=== PATIENT | female | born 1995 | race Caucasian/White ===

== ENCOUNTER 2017-07-01 13:23 | Emergency (ER) | payer OTHER ==
[~2017-07-01] VITALS: Ht 167.6 cm; Wt 51.8 kg
[~2017-07-01 13:23] MED LIST: ACET-1256 PO
[2017-07-01 13:27] VITALS: Ht 167.6 cm; Wt 51.8 kg
[2017-07-01] MEDS ORDERED: SODIUM CHLORIDE 0.9% 1000ML 1,000 ML IV STA (13:41)
[2017-07-01] MEDS ORDERED: ALBUT/IPRATROP 3MG/0.5MG NEB 3 ML VIAL INH STA (13:41)
--- NOTE | 2017-07-01 13:47 | EMERGENCY ROOM VISIT NOTE ---
History First contact with patient: 13:28 Chief Complaint: SORETHROAT Stated Complaint: CAN'T SWALLOW, DIFF. BREATING, BLOOD WHEN COUGHING History of Present Illness The patient is a 22 year old female who presents to the Emergency Room with complaints of cough 4 days. The patient reports that she has had worsening cough over the past 4 days. She was seen at [facility] yesterday and diagnosed with acute bronchitis. She states that since then, she has been coughing up a small amount of blood and has been unable to swallow due to throat irritation. She has had coughing fits and does have some difficulty breathing associated with these. She reports a low-grade fever, chills, muscle aches, nausea and decreased appetite. She does report she drove to [place] 2 weeks ago but denies any other long travel. She is not a smoker. She reports her mother and sister have factor V Leiden disorder, but the patient tested negative for this. She denies any history of asthma or other pulmonary issues. Her vaccinations are up-to-date. Review of Systems A complete 10 point review of systems was reviewed with the patient with pertinent positives and negatives as per history of present illness. All else were negative. Past Medical/Surgical History Medical Problems: (1) No significant past medical history Surgical Problems: (1) No history of previous surgery Family History FH: cancer FH: diabetes mellitus Social History Smoking Status: Never Smoker Alcohol Use: occasionally Housing Status: lives with roommate Occupation Status: [employer] student Current/Historical Medications Scheduled Azithromycin (Zithromax), 250 MG PO DIRECTED Scheduled PRN Benzonatate (Tessalon Perles), 100 MG PO TID PRN for Cough Hydrocodone W/ Homatropine (Hycodan 5/1.5MG 5 Ml), 5-10 ML PO Q4H PRN for Cough Physical Exam Vital Signs Date Time Temp Pulse Resp B/P (MAP) Pulse Ox O2 Delivery O2 Flow Rate FiO2 07/01/17 15:42 36.8 107 18 115/71 98 07/01/17 14:57 105 20 127/75 98 Room Air 07/01/17 13:53 99 Room Air 07/01/17 13:27 36.9 119 18 124/88 97 Room Air 07/01/17 13:26 Room Air Physical Exam VITALS: Vitals are noted on the nurse's note and reviewed by myself. Vital signs stable. GENERAL: This is a 22-year-old female, in no acute distress, nondiaphoretic, well-developed well-nourished. SKIN: The skin was without rashes. EARS: External auditory canals clear, tympanic membranes pearly oliva without erythema or effusion bilaterally. EYES: Pupils equal round and reactive to light and accommodation. Conjunctivae without injection, sclerae without icterus. NOSE: Patent, turbinates without inflammation or discharge. MOUTH: Mucous membranes moist. The oropharynx is mildly erythematous. No swelling of the tonsils or exudate present. NECK: Supple without nuchal rigidity. No lymphadenopathy. HEART: Tachycardic, regular rhythm without murmurs gallops or rubs. LUNGS: Clear to auscultation bilaterally without wheezes, rales or rhonchi. No retractions or accessory muscle use. ABDOMEN: Positive bowel sounds x 4. Soft, nontender, without masses or organomegaly. NEURO: Patient was alert and oriented to person place and time. Medical Decision & Procedures ER Provider Diagnostic Interpretation: CHEST 2 VIEWS ROUTINE CLINICAL HISTORY: cough, sob COMPARISON STUDY: No previous studies for comparison. FINDINGS: The cardiac and mediastinal contours are normal. There is no evidence of focal pulmonary consolidation. There is no evidence of failure. No pleural effusions are visualized.[ IMPRESSION: No active disease in the chest. Laboratory Results 07/01/17 13:53 Red Blood Count 4.96, Mean Corpuscular Volume 89.3, Mean Corpuscular Hemoglobin 31.0, Mean Corpuscular Hemoglobin Concent 34.8, Mean Platelet Volume 9.5, Neutrophils (%) (Auto) 79.8, Lymphocytes (%) (Auto) 10.0, Monocytes (%) (Auto) 9.7, Eosinophils (%) (Auto) 0.1, Basophils (%) (Auto) 0.2, Neutrophils # (Auto) 7.86, Lymphocytes # (Auto) 0.98, Monocytes # (Auto) 0.95, Eosinophils # (Auto) 0.01, Basophils # (Auto) 0.02 07/01/17 13:53 Test 07/01/17 13:45 07/01/17 13:53 Influenza Type A Antigen Neg for Influ A (NEG) Influenza Type B Antigen Neg for Influ B (NEG) White Blood Count 9.84 K/uL (4.8-10.8) Red Blood Count 4.96 M/uL (4.2-5.4) Hemoglobin 15.4 g/dL (12.0-16.0) Hematocrit 44.3 % (37-47) Mean Corpuscular Volume 89.3 fL (80-100) Mean Corpuscular Hemoglobin 31.0 pg (25-34) Mean Corpuscular Hemoglobin Concent 34.8 g/dl (32-36) Platelet Count 208 K/uL (130-400) Mean Platelet Volume 9.5 fL (7.4-10.4) Neutrophils (%) (Auto) 79.8 % Lymphocytes (%) (Auto) 10.0 % Monocytes (%) (Auto) 9.7 % Eosinophils (%) (Auto) 0.1 % Basophils (%) (Auto) 0.2 % Neutrophils # (Auto) 7.86 K/uL (1.4-6.5) Lymphocytes # (Auto) 0.98 K/uL (1.2-3.4) Monocytes # (Auto) 0.95 K/uL (0.11-0.59) Eosinophils # (Auto) 0.01 K/uL (0-0.5) Basophils # (Auto) 0.02 K/uL (0-0.2) RDW Standard Deviation 42.5 fL (36.4-46.3) RDW Coefficient of Variation 13.0 % (11.5-14.5) Immature Granulocyte % (Auto) 0.2 % Immature Granulocyte # (Auto) 0.02 K/uL (0.00-0.02) D-Dimer 420 ug/L FEU (0-500) Anion Gap 9.0 mmol/L (3-11) Est Creatinine Clear Calc Drug Dose 80.2 ml/min Estimated GFR () 105.2 Estimated GFR (Non- 90.8 BUN/Creatinine Ratio 9.2 (10-20) Calcium Level 9.2 mg/dl (8.5-10.1) Medications Administered Medications (Trade) Dose Ordered Sig/Jorge Route Start Time Stop Time Status Last Admin Dose Admin Sodium Chloride 1,000 ml @ 999 mls/hr Q1H1M STAT IV 07/01/17 13:41 07/01/17 14:49 DC 07/01/17 13:52 999 MLS/HR Albuterol/ Ipratropium (Duoneb) 3 ml NOW STAT INH 07/01/17 13:41 07/01/17 13:43 DC 07/01/17 13:52 3 ML Albuterol (Ventolin Hfa Inhaler) 2 puffs NOW ONCE INH 07/01/17 15:15 07/01/17 15:16 DC 07/01/17 15:42 2 PUFFS ED Course The patient was evaluated as above. Labs were drawn and IV access was obtained. Patient was medicated with a DuoNeb treatment and a 1 L saline bolus. Chest x-ray was performed and read by radiology as above. Patient was reevaluated and findings were discussed with the patient. Discharge instructions were reviewed with the patient. The patient verbalized understanding of my assessment and treatment plan and was discharged home in good condition. Medical Decision Differential diagnosis includes acute bronchitis, pneumonia, influenza, pulmonary embolism, malignancy/mass, among others. The patient is a 22-year-old female who presents today complaining of cough and flulike symptoms. Labs revealed no leukocytosis, anemia or concerning electrolyte abnormalities. D-dimer was not elevated, and as patient is not significantly high risk I do not feel that further workup for PE is oriented. Chest x-ray did not show pneumonia. Patient is already taking Zithromax which was prescribed by [employer]. She was encouraged to continue this. She was additionally given a Ventolin inhaler and hydrocodone cough syrup for further symptomatic relief. She was encouraged to increase fluid intake and follow-up with [facility] services as needed. Based on the patient's presentation and work up, I feel the patient is stable for outpatient treatment. The patient was educated to return to the emergency department for any worsening of their current condition or new/concerning symptoms. She will follow up with [facility]. [facility] Monitoring Program Search Results: patient reviewed within database, no issues identified Medication Reconcilliation Current Medication List: was personally reviewed by me Blood Pressure Screening Patient's blood pressure: Normal blood pressure Impression Primary Impression: Upper respiratory infection Departure Information Dispostion Home / Self-Care Condition GOOD Prescriptions Hydrocodone W/ Homatropine (HYCODAN 5/1.5MG 5 ML) 1 Syp Syp 5-10 ML PO Q4H Y for Cough, #120 ML Prov: Lucy Wilson ., LILLIE 07/01/17 Referrals No Doctor, Assigned (PCP) Patient Instructions My [facility] Additional Instructions Take the Hycodan cough syrup as directed as needed for cough. This medication may make you drowsy. This medication impairs her ability to drive. It is illegal to drive while taking this medication. Use the Ventolin inhaler every 4-6 hours as needed for cough. For pain control, you can use the following [id number] medicines (if >12 yo): - Regular strength (325mg/tab) Tylenol (acetaminophen) 2 tabs every 4-6 hours as needed. Do not exceed 12 tablets in a 24 hour period. Avoid taking more than 4 grams (4000 mg) of Tylenol per day. This includes any other sources of acetaminophen you may take on a regular basis. - Regular strength (200 mg/tab) Advil (ibuprofen) 1-2 tabs every 4-6 hours as needed. Do not exceed a dose of 3200 mg per day. Rest and drink plenty of fluids. Follow-up with [facility] services as needed. Return here with any worsening or new/concerning symptoms. Problem Qualifiers Primary Impression: Upper respiratory infection URI type: unspecified URI Qualified Codes: J06.9 - Acute upper respiratory infection, unspecified
[2017-07-01 13:53] VITALS: O2SAT 99
[2017-07-01 14:06] LABS: BASO % 0.2 %; BASO ABS # 0.02 K/uL (0-0.2); COMPLETE YES; EOS % 0.1 %; HEMATOCRIT 44.3 % (37-47); IG% 0.2 %; LYMPH ABS # 0.98 K/uL (1.2-3.4); MEAN CELL VOLUME 89.3 fL (80-100); MEAN CORPUSCULAR HGB CONC 34.8 g/dl (32-36); MEAN PLATELET VOLUME 9.5 fL (7.4-10.4); MONO % 9.7 %; NEUT % 79.8 %; PLATELET COUNT 208 K/uL (130-400); RED BLOOD COUNT 4.96 M/uL (4.2-5.4); WHITE BLOOD COUNT 9.84 K/uL (4.8-10.8)
[2017-07-01] MEDS ORDERED: AZIT250T PO (14:16)
[2017-07-01] MEDS ORDERED: BENZ100C84 PO (14:16)
[2017-07-01 14:23] LABS: BUN/CREATININE RATIO 9.2 (10-20); CALCIUM 9.2 mg/dl (8.5-10.1); CREATININE 0.9 mg/dl (0.60-1.20); POTASSIUM 3.8 mmol/L (3.5-5.1)
--- NOTE | 2017-07-01 14:39 | DIAGNOSTIC IMAGING REPORT ---
CHEST 2 VIEWS ROUTINE CLINICAL HISTORY: cough, sob COMPARISON STUDY: No previous studies for comparison. FINDINGS: The cardiac and mediastinal contours are normal. There is no evidence of focal pulmonary consolidation. There is no evidence of failure. No pleural effusions are visualized.[ IMPRESSION: No active disease in the chest. Electronically signed by: Dilan Godoy M.D. 07/01/2017 2:37 PM Dictated Date/Time: 07/01/2017 2:37 PM
[2017-07-01] MEDS ORDERED: ALBUTEROL HFA 8 GM INHALER INH ONE (15:15)
[2017-07-01] MEDS ORDERED: HYDR5SYP11 PO (15:17)
[2017-07-01 15:42] VITALS: BP 115/71; PULSE 107; TEMP 36.8; O2SAT 98
== END 2017-07-01 15:45 | disposition home or self-care (01) ==
LOC: C.EDB 13:25
DX: J06.9 Acute upper respiratory infection, unspecified (principal)

== ENCOUNTER 2019-07-17 21:47 | Inpatient (IN) ==
[2019-07-17] MEDS ORDERED: SODIUM CHLORIDE 0.9% 1000ML 1,000 ML IV SCH (22:15)
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
[2019-07-17 22:29] LABS: Appearance Urine Clear (Clear); Bilirubin Urine Negative (Negative); Blood Urine Negative (Negative); Color Urine Yellow; Glucose Urine UA Negative (Negative); Ketones Urine Negative (Negative); Leukocyte Esterase Urine Negative (Negative); Nitrite Urine Negative (Negative); Protein Urine Negative (Negative); Specific Gravity Urine 1.012 (1.000-1.030); Urobilinogen Urine Negative (Negative)
[2019-07-17 22:35] LABS: Basophils # (auto) 0.02 K/uL (0-0.2); Basophils % (auto) 0.3 %; Eosinophils # (auto) 0.02 K/uL (0-0.5); Eosinophils % (auto) 0.3 %; Hemoglobin 14.3 g/dL (12.0-16.0); Immature Granulocytes # (auto) 0.01 K/uL (0.00-0.02); Immature Granulocytes % (auto) 0.2 %; Lymphocytes # (auto) 2.13 K/uL (1.2-3.4); Lymphocytes % (auto) 32.1 %; Mean Corpuscular Hgb Conc 33.3 g/dL (32-36); Mean Corpuscular Volume 90.1 fL (80-100); Mean Platelet Volume 9.4 fL (7.4-10.4); Monocytes # (auto) 0.38 K/uL (0.11-0.59); Monocytes % (auto) 5.7 %; Neutrophils # (auto) 4.07 K/uL (1.4-6.5); Neutrophils % (auto) 61.4 %; Platelet Count 339 K/uL (130-400); RDW Coefficient of Variation 13.6 % (11.5-14.5); Red Blood Count 4.77 M/uL (4.2-5.4); White Blood Count 6.63 K/uL (4.8-10.8)
[2019-07-17 22:38] LABS: Prothrombin Time 9.8 Seconds (9.0-12.0)
[2019-07-17 22:46] LABS: Albumin Level 3.7 gm/dl (3.4-5.0); Calcium 8.9 mg/dl (8.5-10.1); Creatinine Clr Calc Pharmacy 92.7 ml/min; Est GFR (African American) 140.5; Est GFR (Non-African American) 121.3; Magnesium 1.9 mg/dl (1.8-2.4); Potassium 3.7 mmol/L (3.5-5.1)
[2019-07-17 22:48] LABS: Pregnancy Test, Serum Negative (Negative)
[2019-07-17 22:49] LABS: Albumin Globulin Ratio 0.9 (0.9-2); Bilirubin,Total 0.2 mg/dl (0.2-1); Globulin 4.1 gm/dl (2.5-4.0); Total Protein 7.8 gm/dl (6.4-8.2)
[2019-07-17 22:51] LABS: Amphetamines+Metham, Urine Neg (Neg); Barbiturates, Urine Neg (Neg); Benzodiazepine, Urine Neg (Neg); Cocaine, Urine Neg (Neg); MDMA (Ecstacy), Urine Neg (Neg); Methadone, Urine Neg (Neg); Opiate, Urine Neg (Neg); Phencyclidine, Urine Neg (Neg)
[2019-07-17 23:09] LABS: Acetaminophen < 2 ug/ml (10-30); Salicylate < 1.7 mg/dl (2.8-20)
[2019-07-18] MEDS ORDERED: ONDANSETRON INJ 2 MG/ML 2 ML VIAL IV STA (04:11)
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
[2019-07-18] MEDS ORDERED: MAGNESIUM HYDROXIDE SUSP 30 ML UDC PO PRN (05:32)
[2019-07-18] MEDS ORDERED: ALUMINUM/MAGNESIUM SUSP 30 ML UDC PO PRN (05:32)
[2019-07-18] MEDS ORDERED: BISMUTH SUBSALICYLATE PER ML OMNICELL CHARGE PO PRN (05:32)
[2019-07-18] MEDS ORDERED: ACETAMINOPHEN 325 MG TAB PO PRN (05:32)
[2019-07-18] MEDS ORDERED: SODIUM CHLORIDE 0.65% NA SOLN 45 ML (OCEAN) PRN (05:32)
--- NOTE | 2019-07-18 18:22 | History & Physical ---
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 Pt is seeking outpt therapy referral and is not seeking psychotropic medicaiton a t this time but did express willingness to consider buspar as an option. Pt denied any past SI and wonders if the emotional distress and the alcohol usage that is not somethin she tends to use brought out her sudden impuslive self ahrming behavior and denied any further or previous SI. She is seeeking discharge shortly from the hospital as preferring to be home but also seeming to receptive to treatment. She has not signed 72hour notice and apepars to be working with staff and engaging fully so far. (1) Anxiety: Inventory Assets Strengths: insightful, seeking therapy, Needs: therapy referral, addresing interpersonal relationship concerns with a female friend and with new intimate relationship Risk Factors Assessment Male: No : Yes Do You Have Access To A Gun?: No Health Problems: No Mental Health Diagnoses: Yes Substance Use Disorders: No Previous Psychiatric Hospitalization: No Hopelessness: No Smoker: No Protective Factors Assessment : No Responsible for Young Children: No Employed: No Supportive Family: Yes Psychiatric History Identifying Data KATHLEEN BAUTISTA is a 24-year-old F who currently lives in [place] has a remote history of Anorexia Nervosa currently resolved and present with symptoms consistent with EDDI , and was admitted on 07/18/19 04:37 on a 201 voluntary commitment for having OD of Macrobid in context of emotional distress and alcohol intoxation Chief Complaint "when can I go Home". History of Present Illness Kathleen is a 24-year-old female this is her first psychiatric admission and was admitted to [facility] 07/18 due to a sudden impulsive suicidal gesture taking overdose of Macrobid pills on night of 07/17 in the context of quite significant alcohol drinking that evening with her first aiming for the alcohol usage to help relax her and have a nice night out with likely eating of some self-medicating. However her emotional distress increased and she felt like she was more angry and upset and anxious and overwhelmed she did. She does not fully recall her thought process and various details leading up to her overdose attempt . She is quite engaging in the interview and quite insightful. She shares about her stressors with a focus more on how she is feeling tense over applying for grad school in [facility] for counseling. She is here on a student visa and would highly like to be able to live in [facility] upon graduation in December but will need to have a training program to be affiliated with to be able to extend her visa. Her goal is to be in to live in [facility]. Her backup is to live in [place] and sort out what she would be doing while there only if does not end up in [facility]. Her mother is currently in [place] and patient plans to visit her there during this upcoming giving break that is now less than a week away. Her father is in [facility]. She shared that her other stressor is having a lot on her plate including a significant position in dealing with [employer] that has her on 2 committiees. She is realizing how much she tends to be a perfectionist and to keep herself quite busy and is starting to consider making some shifts in this as wiling to view it as not working for her as well as she would otherwise think. She hasd recent intperersonal tnesion with a main female friend who she has celared the air with about 2 weks ago with her also deciding to adjsut her bdouanries and relationship with. It appears that trigger for last night's drinking and emotional distress was some emotional attention tied to that tyrone that she recently started seeing. It appears that this relationship was kept quiet from her peer group due to how they are all interconnected. She did not divulge the source of this emotional tension but that she is coming to the decision that she wants to end the relationship due to the fact that she is not comfortable with how emotionally distressed this relationship caused her to be this past night. She alldued to a prior relationship that was quite unhealthly for her but did not disclose further about it of these relationships. She enodrsed impaired motivation recently and soemtiems short spurts of depessed mood but denied other depressive symptoms. She enodrsed EDDI symptoms though. She enodrsed having 1-2 panic attacks and pehraps a panic attack last night. She reproted that she is not one dto drink much at all and last nigth was quite different for her in terms of her drinking. She denied any cananis usage or other substnace usage and or misue of meds, deneid any past h/o SIB or other para-suicidal ideation or behaviors prior to above OD. She denied HI. she denied psychotic features or h/o hypomanic symptoms or OCD. she denied any ED symptoms besides some poor body image that can worsen at times of stress. Past Psychiatric History Previous Psych History: Anoxeria nervosa - purging time adolscence treatment otbained and improved/resovled at age 18 with outpt therapy aptps. Current Psychiatric Diagnosis: EDDI Previous Psych Admissions: this admission first admission Do You Have Access To A Gun?: No History of Previous Suicide Attempt: Yes (addmission OD of several macrobid pills and ) Describe Attempts in the Past: age 16 - cut self Past Medication Trials: none Past Head Trauma/Neuro History History of Concussion/Seizure: No Allergies Allergy/AdvReac Type Severity Reaction Status Date / Time No Known Allergies Allergy Unverified 05/02/19 00:44 Home Medications Home Medications Medication Instructions Recorded Confirmed Type June FE .01/28 (28) 1 tab DAILY 07/18/19 07/18/19 History Family History Family History of: None Alcohol History Hx of Alcohol Use Over the Past 12 Months: Yes (occassional/social - "very rarely") AUDIT Total Score: 3 Smoking Use Have You Smoked or Used Tobacco Products in the Last 30 Days: No Smoking Status: Never smoker Substance History Hx of Prescription Med Misuse Over the Past 12 Months: No Hx of Over the Counter Med Misuse Over the Past 12 Months: No Hx of Inhalent Misuse Over the Past 12 Months: No Hx of Organic Substance Use Over the Past 12 Months: No Hx of Illegal Substances/Street Drug Use Over Past 12 Months: No Problems as a Result of Past Substance Use: None Identified Personal History Living Arrangements: Apartment Highest Grade Completed: High School Graduate Highest Grade Completed Comment: [employer] Senior - Art History and setting up to chato ly to grad school for counseling for next school year Marital Status: Single Number Of Children: 0 Beliefs That Will Affect Care: None Current Legal Problems: No Patient History Medical History Contusion of lumbar nerve root (Acute) Depression Sacral contusion (Acute) Upper respiratory infection (Acute) Social History Preferred Language: Macedonian Communication Ability: Effective Mess Attendant Required: No Beliefs That Will Affect Care: None current occupational status: student Feels Safe at Home: Yes Smoking Status: Never smoker Hx Alcohol Use: Yes Hx Substance Use: No Review of Systems Review of Systems: All systems reviewed & are unremarkable except as noted in HPI & below physical exam completed by Dr. Jernigan in the ER was reviewed and considered appropriate and adequate for purpose of this admission ONly additional finding on ROS is nausea occurring today Physical Exam Psychiatric: A+Ox3, euthymic affect Orientation: alert, oriented x 3 and cooperative Apperance: appropriately dressed, appropriately groomed and appeared stated age Eye Contact: good eye contact Motor Behavior: steady gait and station and no abnormal motor movements Speech: normal rate/rhythm/volume of speech mildly anxious affect Mood: + anxious mood Thought Process: goal directed thought process and linear/logical thought process Thought Content: reality based without delusions Suicidal Thoughts: denies suicidal thoughts and denies suicidal intent Homicidal Thoughts: denies homicidal thoughts Hallucinations: no auditory hallucinations and no visual hallucinations Cognition: recent memory grossly intact (besides shortly prior to OD attempt ), remote memory grossly intact, attention grossly intact and language grossly intact Estimated Intelligence: + above average estimated intelligence Insight: good insight Judgement: + fair judgement Vital Signs (Past 24 Hours): Last Vital Signs Temp 36.6 C 07/18/19 05:49 Pulse 64 07/18/19 04:31 Resp 18 07/18/19 05:49 BP 110/74 07/18/19 04:30 Pulse Ox 98 07/18/19 05:49 Results & Data Laboratory Results Laboratory Results - last 24 hr 07/17/19 07/17/19 07/17/19 22:06 22:06 22:12 WBC 6.63 RBC 4.77 Hgb 14.3 Hct 43.0 MCV 90.1 MCH 30.0 MCHC 33.3 RDW Std Deviation 45.0 RDW Coeff of Jasmeet 13.6 Plt Count 339 MPV 9.4 Immature Gran % (Auto) 0.2 Neut % (Auto) 61.4 Lymph % (Auto) 32.1 [place] % (Auto) 5.7 Eos % (Auto) 0.3 Baso % (Auto) 0.3 Immature Gran # (Auto) 0.01 Neut # (Auto) 4.07 Lymph # (Auto) 2.13 [place] # (Auto) 0.38 Eos # (Auto) 0.02 Baso # (Auto) 0.02 PT INR Sodium Potassium Chloride Carbon Dioxide Anion Gap BUN Creatinine Est Cr Clr Drug Dosing Est GFR ( Amer) Est GFR (Non-Af Amer) BUN/Creatinine Ratio Glucose Calcium Magnesium Total Bilirubin AST ALT Alkaline Phosphatase Total Protein Albumin Globulin Albumin/Globulin Ratio HCG, Qual Urine Color Yellow Urine Appearance Clear Urine pH 6.0 Ur Specific [place] 1.012 Urine Protein Negative Urine Glucose (UA) Negative Urine Ketones Negative Urine Blood Negative Urine Nitrite Negative Urine Bilirubin Negative Urine Urobilinogen Negative Ur Leukocyte Esterase Negative Salicylates Urine Opiates Screen Neg Ur Methadone, Qual Neg Acetaminophen Urine Barbiturates Neg Ur Phencyclidine (PCP) Neg U Amphetamin/Meth Scrn Neg MDMA (Ecstasy) Screen Neg U Benzodiazepines Scrn Neg Ur Cocaine Metabolite Neg U Marijuana (THC) Screen Neg Ethyl Alcohol mg/dL 07/17/19 07/17/19 07/17/19 22:12 22:12 22:12 WBC RBC Hgb Hct MCV MCH MCHC RDW Std Deviation RDW Coeff of Jasmeet Plt Count MPV Immature Gran % (Auto) Neut % (Auto) Lymph % (Auto) [place] % (Auto) Eos % (Auto) Baso % (Auto) Immature Gran # (Auto) Neut # (Auto) Lymph # (Auto) [place] # (Auto) Eos # (Auto) Baso # (Auto) PT 9.8 INR 1.0 Sodium 142 Potassium 3.7 Chloride 109 H Carbon Dioxide 26 Anion Gap 7.0 BUN 5 L Creatinine 0.70 Est Cr Clr Drug Dosing 92.7 Est GFR ( Amer) 140.5 Est GFR (Non-Af Amer) 121.3 BUN/Creatinine Ratio 7.0 L Glucose 85 Calcium 8.9 Magnesium 1.9 Total Bilirubin 0.2 AST 14 L ALT 18 Alkaline Phosphatase 45 Total Protein 7.8 Albumin 3.7 Globulin 4.1 H Albumin/Globulin Ratio 0.9 HCG, Qual Urine Color Urine Appearance Urine pH Ur Specific [place] Urine Protein Urine Glucose (UA) Urine Ketones Urine Blood Urine Nitrite Urine Bilirubin Urine Urobilinogen Ur Leukocyte Esterase Salicylates < 1.7 L Urine Opiates Screen Ur Methadone, Qual Acetaminophen < 2 L Urine Barbiturates Ur Phencyclidine (PCP) U Amphetamin/Meth Scrn MDMA (Ecstasy) Screen U Benzodiazepines Scrn Ur Cocaine Metabolite U Marijuana (THC) Screen Ethyl Alcohol mg/dL 07/17/19 07/17/19 22:12 22:12 WBC RBC Hgb Hct MCV MCH MCHC RDW Std Deviation RDW Coeff of Jasmeet Plt Count MPV Immature Gran % (Auto) Neut % (Auto) Lymph % (Auto) [place] % (Auto) Eos % (Auto) Baso % (Auto) Immature Gran # (Auto) Neut # (Auto) Lymph # (Auto) [place] # (Auto) Eos # (Auto) Baso # (Auto) PT INR Sodium Potassium Chloride Carbon Dioxide Anion Gap BUN Creatinine Est Cr Clr Drug Dosing Est GFR ( Amer) Est GFR (Non-Af Amer) BUN/Creatinine Ratio Glucose Calcium Magnesium Total Bilirubin AST ALT Alkaline Phosphatase Total Protein Albumin Globulin Albumin/Globulin Ratio HCG, Qual Negative Urine Color Urine Appearance Urine pH Ur Specific [place] Urine Protein Urine Glucose (UA) Urine Ketones Urine Blood Urine Nitrite Urine Bilirubin Urine Urobilinogen Ur Leukocyte Esterase Salicylates Urine Opiates Screen Ur Methadone, Qual Acetaminophen Urine Barbiturates Ur Phencyclidine (PCP) U Amphetamin/Meth Scrn MDMA (Ecstasy) Screen U Benzodiazepines Scrn Ur Cocaine Metabolite U Marijuana (THC) Screen Ethyl Alcohol mg/dL 201.9 H Current Inpatient Medications Current Inpatient Medications: Current Inpatient Medications Acetaminophen (Tylenol) 650 mg PO Q4H PRN PRN Reason: Headache or Minor Fever Stop: 08/17/19 05:31 Al Hydrox/Mg Hydrox/Simethicone (Maalox) 30 ml PO Q4H PRN PRN Reason: GI Upset Stop: 08/17/19 05:31 Bismuth Subsalicylate (Kaopectate) 15 ml PO PRN PRN PRN Reason: Loose Stool Stop: 08/17/19 05:31 Hydroxyzine HCl (Vistaril) 50 mg PO HSZ PRN PRN Reason: Insomnia Stop: 08/17/19 05:36 Hydroxyzine HCl (Vistaril) 25 mg PO Q4H PRN PRN Reason: Anxiety Stop: 08/17/19 05:31 Magnesium Hydroxide (Milk Of Magnesia) 30 ml PO DAILY PRN PRN Reason: Constipation Stop: 08/17/19 05:31 Sodium Chloride (Routt Nasal) 1 - 2 sprays NA PRN PRN PRN Reason: Nasal Dryness/Congestion Stop: 08/17/19 05:31
--- NOTE | 2019-07-19 10:07 | Discharge Summary ---
Date of Service July 19, 2019 History of Present Illness Kathleen is a 24-year-old female this is her first psychiatric admission and was admitted to [facility] 07/18 due to a sudden impulsive suicidal gesture taking overdose of Macrobid pills on night of 07/17 in the context of quite significant alcohol drinking that evening with her first aiming for the alcohol usage to help relax her and have a nice night out with likely some self- medicating. However her emotional distress increased and she felt like she was more angry and upset and anxious and overwhelmed she did. She does not fully recall her thought process and various details leading up to her overdose attempt . She is quite engaging in the interview and quite insightful. She shares about her stressors with a focus more on how she is feeling tense over applying for grad school in [facility] for counseling. She is here on a student visa and would highly like to be able to live in [facility] upon graduation in December but will need to have a training program to be affiliated with to be able to extend her visa. Her goal is to be in to live in [facility]. Her backup is to live in [place] and sort out what she would be doing while there only if does not end up in [facility]. Her mother is currently in [place] and patient plans to visit her there during this upcoming break that is now less than a week away. Her father is in [facility]. She shared that her other stressor is having a lot on her plate including a significant position in dealing with [employer] that has her on 2 committees. She is realizing how much she tends to be a perfectionist and to keep herself quite busy and is starting to consider making some shifts in this as wiling to view it as not working for her as well as she would otherwise think. She had recent interpersonal tension with a main female friend who she has cleared the air with about 2 weeks ago with her also deciding to adjust her boundaries and relationship with. It appears that trigger for last night's drinking and emotional distress was some emotional attention tied to that tyrone that she recently started seeing. It appears that this relationship was kept quiet from her peer group due to how they are all interconnected. She did not divulge the source of this emotional tension but that she is coming to the decision that she wants to end the relationship due to the fact that she is not comfortable with how emotionally distressed this relationship caused her to be this past night. She alluded to a prior relationship that was quite unhealthily for her but did not disclose further about it of these relationships. She endorsed impaired motivation recently and sometimes short spurts of depressed mood but denied other depressive symptoms. She endorsed EDDI symptoms though. She endorsed having 1-2 panic attacks and perhaps a panic attack last night. She reported that she is not one to drink much at all and last night was quite different for her in terms of her drinking. She denied any other substance usage and or misuse of meds, denied any past h/o SIB or other para-suicidal ideation or behaviors prior to above OD. She denied HI. she denied psychotic features or h/o hypomanic symptoms or OCD. she denied any ED symptoms besides some poor body image that can worsen at times of stress. Physical Exam Psychiatric Orientation: alert and cooperative Apperance: appropriately dressed, appropriately groomed and appeared stated age Eye Contact: good eye contact Motor Behavior: steady gait and station and no abnormal motor movements Speech: normal rate/rhythm/volume of speech Affect: euthymic affect and mood congruent with affect "Very good." Thought Process: goal directed thought process and linear/logical thought process Thought Content: reality based without delusions Suicidal Thoughts: denies suicidal thoughts Homicidal Thoughts: denies homicidal thoughts Hallucinations: no auditory hallucinations Cognition: recent memory grossly intact, attention grossly intact and language grossly intact Estimated Intelligence: consistent with education level Insight: good insight Judgement: good judgement Vital Signs (Past 24 Hours) Last Vital Signs Temp 36.6 C 07/19/19 06:00 Pulse 64 07/19/19 06:00 Resp 16 07/19/19 06:00 BP 116/40 L 07/19/19 06:00 Pulse Ox 98 07/18/19 05:49 Principal Diagnosis Generalized anxiety disorder Status post intentional Macrobid overdose Alcohol intoxication Psychiatric Data Patient was hospitalized on our unit for 1 day. She signed in voluntarily, then requested discharge as soon as possible. She was able to process the interpersonal stressors that led to her overdose, as as well as the role of alcohol intoxication. She was engaged in treatment and willing for a referral for outpatient therapy. She processed her psychosocial stressors, including over committing herself to clubs and activities, which she thinks stems from her core belief that she is not good enough. She also talked about her strained relationship with her father, whom she feels is hypercritical of her compares her to her siblings. She interacted appropriately with staff and peers, was noted to eat and sleep well. She had a family meeting with her mother (in [place]) by phone, who stated the patient had been more stable since completing outpatient treatment for eating disorder. Patient discussed her ongoing perfectionism and belief that she needs to perform in order to please others, which causes stress for her. They discussed a plan to decrease obligations and schedule time for herself (exercise/gym, therapy), to try to prevent her from overextending. Neither the patient nor her mother felt that psychotropic medications were indicated. The patient remained focused on wanting a rapid discharge, feeling stressed about missing school and other obligations. She consistently denied suicidal thoughts and active depressive symptoms on the unit. She processed feelings of shame and embarrassment related to her overdose, and worked on healthy coping skills and a discharge safety plan. Day of Discharge Assessment Staff report the patient has been attending and participating in groups and has had positive interactions with staff and peers. She had visitors last night, and appeared to sleep well (8.25 hours). She has been referred for outpatient therapy. On my assessment, she states that her mood is "good," and denies suicidal thoughts. She is able to review coping skills she has been working on here and her discharge safety plan. She is looking forward to going to see her mother in [place] in a few days for the break. She is willing to engage with outpatient psychotherapy upon her return to campus. She is requesting discharge, stating that she is anxious about missing schoolwork, and does not feel she needs to be in the hospital. She denies any safety concerns with discharge. Transition of Care Transition Of Care Record: was reviewed with the patient Advance Directives Advance Directives Information Provided: Yes Advance Directives: No Mental Health Advance Directive: No Advance Directives on File: No Living Will: No Power of Tire Mold Tester: No Advance Directives Reason:: Declines as Mental Health Visit. Risk Factors Assessment Risk factors were mitigated by admission to the inpatient unit, discussion of diagnosis and treatment recommendations, involving her in groups and therapy, working on healthy coping skills and a discharge safety plan, referring her for outpatient therapy, and a family meeting with her mother by phone. She is reporting improved mood, denying suicidal ideation, and requesting discharge. She is no longer at acute risk of harm to herself, she can be managed as an outpatient at this time. She is not at increased risk for harm to others. Male: No : Yes Do You Have Access To A Gun?: No Health Problems: No Mental Health Diagnoses: Yes Substance Use Disorders: No Previous Attempt: Yes Previous Attempt; Highly Lethal: No Family History of Suicide: No Previous Psychiatric Hospitalization: No Hopelessness: No Smoker: No Protective Factors Assessment : No Responsible for Young Children: No Employed: No Stable Relationships: No Supportive Family: Yes Tobacco Cessation at Discharge Tobacco Cessation Medication Prescribed at Discharge: Not Applicable/Non-Smoker Discharge Data Lab Results 07/17/19 07/17/19 07/17/19 22:06 22:06 22:12 WBC 6.63 RBC 4.77 Hgb 14.3 Hct 43.0 MCV 90.1 MCH 30.0 MCHC 33.3 RDW Std Deviation 45.0 RDW Coeff of Jasmeet 13.6 Plt Count 339 MPV 9.4 Immature Gran % (Auto) 0.2 Neut % (Auto) 61.4 Lymph % (Auto) 32.1 [place] % (Auto) 5.7 Eos % (Auto) 0.3 Baso % (Auto) 0.3 Immature Gran # (Auto) 0.01 Neut # (Auto) 4.07 Lymph # (Auto) 2.13 [place] # (Auto) 0.38 Eos # (Auto) 0.02 Baso # (Auto) 0.02 PT INR Sodium Potassium Chloride Carbon Dioxide Anion Gap BUN Creatinine Est Cr Clr Drug Dosing Est GFR ( Amer) Est GFR (Non-Af Amer) BUN/Creatinine Ratio Glucose Calcium Magnesium Total Bilirubin AST ALT Alkaline Phosphatase Total Protein Albumin Globulin Albumin/Globulin Ratio HCG, Qual Urine Color Yellow Urine Appearance Clear Urine pH 6.0 Ur Specific [place] 1.012 Urine Protein Negative Urine Glucose (UA) Negative Urine Ketones Negative Urine Blood Negative Urine Nitrite Negative Urine Bilirubin Negative Urine Urobilinogen Negative Ur Leukocyte Esterase Negative Salicylates Urine Opiates Screen Neg Ur Methadone, Qual Neg Acetaminophen Urine Barbiturates Neg Ur Phencyclidine (PCP) Neg U Amphetamin/Meth Scrn Neg MDMA (Ecstasy) Screen Neg U Benzodiazepines Scrn Neg Ur Cocaine Metabolite Neg U Marijuana (THC) Screen Neg Ethyl Alcohol mg/dL 07/17/19 07/17/19 07/17/19 22:12 22:12 22:12 WBC RBC Hgb Hct MCV MCH MCHC RDW Std Deviation RDW Coeff of Jasmeet Plt Count MPV Immature Gran % (Auto) Neut % (Auto) Lymph % (Auto) [place] % (Auto) Eos % (Auto) Baso % (Auto) Immature Gran # (Auto) Neut # (Auto) Lymph # (Auto) [place] # (Auto) Eos # (Auto) Baso # (Auto) PT 9.8 INR 1.0 Sodium 142 Potassium 3.7 Chloride 109 H Carbon Dioxide 26 Anion Gap 7.0 BUN 5 L Creatinine 0.70 Est Cr Clr Drug Dosing 92.7 Est GFR ( Amer) 140.5 Est GFR (Non-Af Amer) 121.3 BUN/Creatinine Ratio 7.0 L Glucose 85 Calcium 8.9 Magnesium 1.9 Total Bilirubin 0.2 AST 14 L ALT 18 Alkaline Phosphatase 45 Total Protein 7.8 Albumin 3.7 Globulin 4.1 H Albumin/Globulin Ratio 0.9 HCG, Qual Urine Color Urine Appearance Urine pH Ur Specific Cyp[place] Urine Protein Urine Glucose (UA) Urine Ketones Urine Blood Urine Nitrite Urine Bilirubin Urine Urobilinogen Ur Leukocyte Esterase Salicylates < 1.7 L Urine Opiates Screen Ur Methadone, Qual Acetaminophen < 2 L Urine Barbiturates Ur Phencyclidine (PCP) U Amphetamin/Meth Scrn MDMA (Ecstasy) Screen U Benzodiazepines Scrn Ur Cocaine Metabolite U Marijuana (THC) Screen Ethyl Alcohol mg/dL 07/17/19 07/17/19 22:12 22:12 WBC RBC Hgb Hct MCV MCH MCHC RDW Std Deviation RDW Coeff of Jasmeet Plt Count MPV Immature Gran % (Auto) Neut % (Auto) Lymph % (Auto) [place] % (Auto) Eos % (Auto) Baso % (Auto) Immature Gran # (Auto) Neut # (Auto) Lymph # (Auto) [place] # (Auto) Eos # (Auto) Baso # (Auto) PT INR Sodium Potassium Chloride Carbon Dioxide Anion Gap BUN Creatinine Est Cr Clr Drug Dosing Est GFR ( Amer) Est GFR (Non-Af Amer) BUN/Creatinine Ratio Glucose Calcium Magnesium Total Bilirubin AST ALT Alkaline Phosphatase Total Protein Albumin Globulin Albumin/Globulin Ratio HCG, Qual Negative Urine Color Urine Appearance Urine pH Ur Specific Cyp[place] Urine Protein Urine Glucose (UA) Urine Ketones Urine Blood Urine Nitrite Urine Bilirubin Urine Urobilinogen Ur Leukocyte Esterase Salicylates Urine Opiates Screen Ur Methadone, Qual Acetaminophen Urine Barbiturates Ur Phencyclidine (PCP) U Amphetamin/Meth Scrn MDMA (Ecstasy) Screen U Benzodiazepines Scrn Ur Cocaine Metabolite U Marijuana (THC) Screen Ethyl Alcohol mg/dL 201.9 H Hospital Course (1) Alcohol intoxication: 07/19 -BAL 201.9 on presentation. Denies other substance use, and reports that drinking is relatively rare for her. Risks of alcohol use have been reviewed, including worsening of mood, impulsivity, and self-harm/suicidal thoughts. Recommendation abstinence until she has stabilized. (2) Suicide gesture: Patient overdosed on #6 tablets of Macrobid while intoxicated and attempt to harm herself. This was impulsive and occurred in the context of an argument with a friend. She is consistently denied symptoms of depression and suicidal thoughts since admission, and has been able to identify healthy coping skills and review her discharge safety plan. -Family meeting held with mother, who is supportive. Patient plans to go to [place] in a few days to stay with her mother for the holiday. (3) Anxiety: Patient meets criteria for generalized anxiety disorder. She declined psychotropic medications, wanting to start with psychotherapy. She has been referred for outpatient therapy, and will engage in services upon return to campus after the holiday. Mental Health & Subst Abuse Tx Therapist Name of Therapist: None Hot Water Heater Installer Name of Hot Water Heater Installer: [employer] Phone Number for Hot Water Heater Installer: [phone] Case Management Appointment Comment: [address] [place] [address] Post Discharge Appointments Primary Care Physician Name Of Family Doctor: MAGDALENO Rafi Primary Care Provider Appointment Comment: [facility] Smoking Cessation Counseling Tobacco Cessation Medication Prescribed at Discharge: Not Applicable/Non-Smoker Contact Information Discharge Discharge [address] [address] [place] [address] Discharge Plan Discharge Items Patient Disposition: Home - Self-Care Reason For Visit: DEPRESSION Discharge Diagnosis: Intentional overdose Alcohol intoxication Generalized anxiety disorder Activity: Per Instructions section Non-emergency contact: Primary Care Provider and Therapist Call non-emergency contact if: your symptoms worsen Follow-up/Referrals: [facility] [Primary Care Provider] - Diet: Regular Addtl Attending Provider Instructions: SPECIAL CARE INSTRUCTIONS: 1. Follow through with your scheduled aftercare appointments. If unable to keep an appointment, please call to reschedule. 2. Take your medication only as prescribed. Medication should not be changed or stopped without the approval of your doctor. In the event of worsening symptoms or concerns about side effects, contact your doctor immediately. 3. Utilize new healthy coping skills, anger management skills, and stress management skills learned during your hospitalization. Journal feelings and process them with a support person. Identify stressors or situations that may result in relapse, deterioration or inappropriate behaviors and develop a plan to deal with those issues. 4. If your coping skills are ineffective and you are in crisis, contact your outpatient providers for direction. If unable to reach your providers, please call the CAN HELP LINE AT or go to the closest Emergency Room. 5. Avoid alcohol and un-prescribed drugs. 6. You have been provided with the Mental Health Advance Directives Pamphlet for your review. AFTERCARE APPOINTMENTS: * Please call your insurance company prior to your scheduled appointment to confirm your aftercare providers are covered. Take your insurance information to your appointments. WHO TO CALL AND WHEN: Medical Emergencies: For questions or emergencies related to your hospital stay, please contact the Inpatient Behavioral Health Unit at [phone]. A railway signal operator is on-call 24/03 for the Behavioral Health Unit for emergencies At any time you feel your situation is an emergency, you may also call 911 immediately. Your Doctors Instructions noted above were prepared by provider Isela Bishop MD. Pending Studies at Discharge: No Stand-Alone Forms: My [facility] [employer], Smoking Cessation, Suicide Prevention Resources Medications and DC Order Prescriptions: Continued (28) 1.5 mg-30 mcg (21)/75 mg (7) tablet 1 tab DAILY RF: 0 Discharge Orders: Discharge Order (Routine); Ordered 07/19/19 Ordered By: Isela Bishop Admission Data Admit Date/Time: 07/18/19 04:37 Attending Provider: Vinny Romo I. Admit Provider: Vinny Romo I. Primary Care Provider: [facility] Other Interventions: PSY Interdisciplinary Discharge Planning Last Done: 07/18/19 10:53 Coding Level of Care Code 50253 D/C day mgmt > 30 min Diagnoses Alcohol intoxication F10.929 Complication of substance-induced condition: with unspecified complication Suicide gesture X83.8XXA Encounter type: initial encounter Anxiety F41.9
[2019-07-19] MEDS ORDERED: JUNEL FE CONTRACEPTIVE PO SCH (19:45)
== END 2019-07-19 12:46 | disposition home or self-care (01) | DRG 880 ==
LOC: ED 21:47 → 3S 07-18 04:37